=== PATIENT | male | born 1975 | race Two or more races ===

== ENCOUNTER 2020-02-04 18:06 | Emergency (ER) | payer SELFPAY ==
[~2020-02-04] VITALS: Ht 154.9 cm; Wt 67.1 kg
--- NOTE | 2020-02-04 18:40 | NUR ---
ED Nurse Note: Pt came to ED for CP for 2 weeks pain 4/10, no radiation. Pt is alert and ox4, ambulatory. Pt states he has had anxiety. Pt has tested negative for COVID 2x. Slovenian speaking.
[2020-02-04 18:45] VITALS: BP 162/91
--- NOTE | 2020-02-04 19:04 | Diagnostic Imaging Report ---
EXAM: XR Chest, 1 View CLINICAL HISTORY: PAIN TECHNIQUE: Frontal view of the chest. COMPARISON: No relevant prior studies available. FINDINGS: Lungs: Unremarkable. No consolidation. Pleural space: Unremarkable. No pneumothorax. Heart: Unremarkable. No cardiomegaly. Mediastinum: Unremarkable. Bones/joints: Unremarkable. IMPRESSION: No acute cardiopulmonary disease.
[2020-02-04 19:07] LABS: BASOPHILS % (AUTO) 0.8 % (0.0-2.0); EOSINOPHILS % (AUTO) 0.1 % (0.0-3.0); HEMATOCRIT 49.9 % (42.0-52.0); HEMOGLOBIN 16.7 G/DL (14.2-18.0); LYMPHOCYTES % (AUTO) 20.7 % (20.0-45.0); MEAN CORPUSCULAR VOLUME 93 FL (80-99); NEUTROPHILS % (AUTO) 73.4 % (45.0-75.0); PLATELET COUNT 282 K/UL (150-450); RED BLOOD COUNT 5.37 M/UL (4.70-6.10); RED CELL DISTRIBUTION WIDTH 11.9 % (11.6-14.8); WHITE BLOOD COUNT 9.5 K/UL (4.8-10.8)
--- NOTE | 2020-02-04 19:11 | Emergency Room Report ---
History of Present Illness General Chief Complaint: Chest Pain Source: Patient Present Illness HPI Patient is a 44-year-old male who presents after increased chest discomfort. Prior history of no prior medical history. Reports having onset of symptoms intermittently associated with increased rapid thoughts. Reports being somewhat anxious after coworker had been diagnosed with coronavirus. Patient had multiple negative coronavirus tests in the past few weeks. Denies any fever. denies any cough. Had not had any leg pain or swelling. 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: Yes - last result notified 02/02 COVID-19 Screening: Negative COVID-19 COVID-19 Testing Source: credit compliance officer negative x2 Patient History Past Medical History: see triage record Reviewed Nursing Documentation: PMH: Agreed; PSxH: Agreed Nursing Documentation-PMH Past Medical History: No Stated History Review of Systems All Other Systems: negative except mentioned in HPI Physical Exam Vital Signs Date Time Temp Pulse Resp B/P (MAP) Pulse Ox O2 Delivery O2 Flow Rate FiO2 02/04/20 18:12 99.0 92 17 169/94 (119) 96 Room Air Sp02 EP Interpretation: reviewed, normal General Appearance: normal inspection, well appearing, no apparent distress, alert, GCS 15, non-toxic Head: atraumatic ENT: normal ENT inspection, hearing grossly normal, normal voice Neck: normal inspection, full range of motion, supple, no bony tend Respiratory: normal inspection, lungs clear, normal breath sounds, no respiratory distress, no retraction, no wheezing Cardiovascular #1: regular rate, rhythm, no edema Gastrointestinal: normal inspection, normal bowel sounds, non tender, soft, no guarding, no hernia Genitourinary: no CVA tenderness Musculoskeletal: normal inspection, back normal, normal range of motion Neurologic: alert, motor strength/tone normal, supply chain project manager III-XII nml as tested, oriented x3, responsive, speech normal, normal inspection Psychiatric: normal inspection, judgement/insight normal, mood/affect normal Medical Decision Making Diagnostic Impression: Primary Impression: Nonspecific chest pain ER Course Patient presented for chest pain. Differential diagnosis included but was not limited to acute coronary syndrome, pulmonary embolism, pneumonia, aortic dissection, shingles, pneumothorax, aortic dissection, esophageal rupture, pericarditis. Because of complexity of patient's case laboratory tests and imaging studies were ordered. EKG interpreted by me showed normal sinus rhythm with a rate of [address] changes. Chest x-ray 1 view interpreted by radiology showed no acute cardiopulmonary disease. Patient appears to have chest pain which is somewhat anxiety in nature. Patient does not appear to have any evidence of acute toxicity and appears to be stable for outpatient management. The patient is advised to follow up with primary care doctor in 1-2 days. Patient is advised to return if any worsening condition or if any changes in status that are concerning. This report is dictated with [employer] flower shop manager software which may occasionally lead to discrepancies related to use of this software. Labs Test 02/04/20 18:35 White Blood Count 9.5 K/UL (4.8-10.8) Red Blood Count 5.37 M/UL (4.70-6.10) Hemoglobin 16.7 G/DL (14.2-18.0) Hematocrit 49.9 % (42.0-52.0) Mean Corpuscular Volume 93 FL (80-99) Mean Corpuscular Hemoglobin 31.2 PG (27.0-31.0) Mean Corpuscular Hemoglobin Concent 33.6 G/DL (32.0-36.0) Red Cell Distribution Width 11.9 % (11.6-14.8) Platelet Count 282 K/UL (150-450) Mean Platelet Volume 8.9 FL (6.5-10.1) Neutrophils (%) (Auto) 73.4 % (45.0-75.0) Lymphocytes (%) (Auto) 20.7 % (20.0-45.0) Monocytes (%) (Auto) 5.0 % (1.0-10.0) Eosinophils (%) (Auto) 0.1 % (0.0-3.0) Basophils (%) (Auto) 0.8 % (0.0-2.0) EKG Diagnostic Results Rate: normal Rhythm: NSR ST Segments: no acute changes Last Vital Signs Date Time Temp Pulse Resp B/P (MAP) Pulse Ox O2 Delivery O2 Flow Rate FiO2 02/04/20 18:12 99.0 92 17 169/94 (119) 96 Room Air Status: improved Disposition: HOME, SELF-CARE Condition: Stable Scripts Lorazepam* (ATIVAN*) 0.5 Mg Tablet 0.5 MG ORAL THREE TIMES A DAY, #10 TAB Prov: Rick Moreira MD 02/04/20 Rick Moreira MD Feb 04, 2020 19:11
[2020-02-04 19:13] LABS: ANION GAP 14 mmol/L (5-15); BLOOD UREA NITROGEN 10 mg/dL (7-18); CARBON DIOXIDE 24 MMOL/L (21-32); CHLORIDE 101 MMOL/L (98-107); CREATININE 1.1 MG/DL (0.55-1.30); POTASSIUM 3.4 MMOL/L (3.5-5.1); SODIUM 139 MMOL/L (136-145)
[2020-02-04] MEDS ORDERED: ATIVAN0.5 MG ORAL (19:22)
[2020-02-04 19:25] LABS: ALANINE AMINOTRANSFERASE 33 U/L (12-78); ALBUMIN 4.8 G/DL (3.4-5.0); ALBUMIN/GLOBULIN RATIO 1.3 (1.0-2.7); ALKALINE PHOSPHATASE 63 U/L (46-116); ASPARTATE AMINO TRANSFERASE 18 U/L (15-37); BILIRUBIN,TOTAL 0.7 MG/DL (0.2-1.0)
[2020-02-04 19:26] LABS: APPEARANCE,URINE CLEAR; BILIRUBIN, URINE NEGATIVE (NEGATIVE); COLOR,URINE YELLOW; GLUCOSE, URINE (UA) NEGATIVE (NEGATIVE); KETONES,URINE 3+ (NEGATIVE); LEUKOCYTE ESTERASE ,URINE NEGATIVE (NEGATIVE); NITRITE,URINE NEGATIVE (NEGATIVE); PH,URINE 6 (4.5-8.0); PROTEIN,URINE NEGATIVE (NEGATIVE); UROBILINOGEN,URINE NORMAL MG/DL (0.0-1.0)
[2020-02-04 19:40] VITALS: BP 142/101
--- NOTE | 2020-02-04 19:40 | NUR ---
ER DISCHARGE NOTE: Patient is cleared to be discharged per ERMD, pt is aox4, on room air, with stable vital signs. pt was given dc and prescription instructions, pt was able to verbalize understanding, pt id band and iv site removed without complications. pt is able to ambulate with steady gait. pt took all belongings.
== END 2020-02-04 19:40 | disposition home or self-care (01) ==
LOC: EMR 18:52
DX: R07.9 Chest pain, unspecified (principal)
CPT/HCPCS: 36415; 71045; 80053; 80307; 81003; 83880; 84484; 85025; 93005; 96374; 99284; S0028

== ENCOUNTER 2020-02-13 10:31 | Emergency (ER) | payer SELFPAY ==
[~2020-02-13] VITALS: Ht 154.9 cm; Wt 66.7 kg
[~2020-02-13 10:31] MED LIST: ATIVAN0.5 MG ORAL
--- NOTE | 2020-02-13 10:55 | NUR ---
ED Nurse Note: Pt ambulated to ed stating that he needs ativan refill for his anxiety attacks.
--- NOTE | 2020-02-13 10:56 | NUR ---
ED Nurse Note: Pt denies pain, pt has no further complaints.
[2020-02-13 11:00] VITALS: BP 163/106
[2020-02-13] MEDS ORDERED: ATIVAN0.5 MG ORAL (11:05)
--- NOTE | 2020-02-13 11:12 | Emergency Room Report ---
History of Present Illness General Chief Complaint: Medication Refill Source: Patient Present Illness HPI Disclaimer: Please note that this report is being documented using [email or web address] technology. This can lead to erroneous entry secondary to incorrect interpretation by the dictating instrument. HPI: 44-year-old primarily Sami-speaking male presents requesting medication refill. He was seen in the emergency department 2 weeks ago complaining of generalized chest discomfort and anxiety. He was discharged with Ativan after negative cardiac screening. He states he took 2 tablets of the 0.5 mg Ativan which has been helping control his symptoms at home. Last night he felt a panic over taking him went outside to get some cool air and accidentally dropped the remaining tablets in a bottle. He currently denies any symptoms of anxiety but is requesting a medication refill to have just in case symptoms return. He has not yet followed up with a PMD. He denies any SI/HI, chest pain , palpitations, shortness of breath, racing thoughts, changes in sleep or behavior. He is requesting a short-term prescription until he can be established with PMD. No other symptoms reported at this time. 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 EOMI. Cardiovascular: RRR. S1 and S2 normal. No murmur appreciated Resp: Normal work of breathing. No cough, wheezing or crackles appreciated Abdomen: Abdomen is soft, nondistended. Nontender Skin: Intact. No abrasions, laceration or rash over the exposed skin MSK: Normal tone and bulk. Moving all extremities. No obvious deformity. Neuro: Awake and alert. Mentating appropriately. Medical Decision Making Diagnostic Impression: Primary Impression: Encounter for medication refill Additional Impression: Anxiety ER Course Well-appearing 44-year-old male requesting refill of his anxiety medication. Patient is no acute distress and has no acute complaints at this time. He states that he has not been able to get into a PMD office and therefore cannot ask for prescriptions from anywhere else but on emergency department. He felt a panic attack last night similar to his prior ED visit but currently has no symptoms. EKG was performed showing normal sinus rhythm without ischemic changes and unchanged from previous EKG. Cures report was completed showing no other prescriptions. The patient appears earnest and we will re-prescribe a short course of Ativan and re-refer to primary care clinics in the area. Also provided him information on mental health services in the area. We discussed reasons to return to the emergency department. He understands and agrees with treatment plan. EKG Diagnostic Results EKG Time: 11:09 Rate: normal Rhythm: NSR ST Segments: no acute changes Other Impression Sinus rhythm, normal axis, normal intervals, no ST segment changes. Unchanged from EKG on 02/04/2020 Rhythm Strip Diag. Results Rhythm Strip Time: 11:09 EP Interpretation: yes Rate: 79 Rhythm: NSR, no PVC's, no ectopy Last Vital Signs Date Time Temp Pulse Resp B/P (MAP) Pulse Ox O2 Delivery O2 Flow Rate FiO2 02/13/20 11:04 98.8 78 18 157/93 99 Room Air Disposition: HOME, SELF-CARE Condition: Stable Scripts Lorazepam* (ATIVAN*) 0.5 Mg Tablet 0.5 MG ORAL THREE TIMES A DAY, #10 TAB Prov: Moustapha Andrade MD 02/13/20 Referrals: [facility] Psych ER - Peds ER - [facility] Intake Hotline - [facility] - Patient Instructions: Medicine Refill at the Emergency Department, Panic Attacks Additional Instructions: Please follow-up with 1 of the clinics listed here to become a primary care patient and refer to 1 of the mental health services here to discuss your anxiety. If you experience chest pain, panic attack-like symptoms including severe sweatiness, feeling like you might lose consciousness, rapid heart rate, thoughts of harming yourself or others or any other sudden changes in your health return to the emergency department. Moustapha Andrade MD Feb 13, 2020 11:12
[2020-02-13 11:14] VITALS: BP 157/98
--- NOTE | 2020-02-13 11:15 | NUR ---
ER DISCHARGE NOTE: Patient is cleared to be discharged per ERMD, pt is aox4, on room air, with stable vital signs. pt was given dc and prescription instructions, pt was able to verbalize understanding, pt id band removed. pt is able to ambulate with steady gait. pt took all belongings.
== END 2020-02-13 11:15 | disposition home or self-care (01) ==
LOC: EMR 11:05
DX: F41.9 Anxiety disorder, unspecified (principal); Z76.0 Encounter for issue of repeat prescription
CPT/HCPCS: 93005; 99282